=== PATIENT | female | born 1980 | race Native Hawaiian/Other Pacific Islander ===

== ENCOUNTER 2017-08-31 13:46 | Emergency (ER) | payer OTHER ==
[2017-08-31 14:08] VITALS: BMI 20.5
[2017-08-31 14:12] VITALS: RESP 18; TEMP 98.6; O2SAT 100
--- NOTE | 2017-08-31 15:13 | ED PDOC ---
Arrival/HPI - General Chief Complaint: Back Pain Time Seen by Provider: 08/31/17 14:00 - History of Present Illness Narrative History of Present Illness (Text): 37 y/o F c no PMHx p/w L flank pain x 1 day. States pain began today after shower. Denies fever, chills, dyspnea, nausea, vomiting, diarrhea, dysuria, hematuria, rash, injury. States pain was so intense, passed out, caught by , no trauma. Patient states she underwent fertility treatment in the past week which include a SQ injection in abdomen and semen injection 3 days ago. Past Medical History - Psychiatric Hx Substance Use: No Family/Social History Family/Social History: No Known Family HX Smoking Status: Former Smoker Hx Alcohol Use: No Hx Substance Use: No Allergies/Home Meds Allergies/Adverse Reactions: Allergies amoxicillin Allergy (Verified 08/31/17 14:08) RASH Review of Systems - Physician Review All systems were reviewed & negative as marked: Yes - Review of Systems Constitutional: absent: Fevers Respiratory: absent: SOB Physical Exam - Physical Exam Narrative Physical Exam (Text): Gen: NAD Head: NC Eyes: No conjunctival pallor ENT: MMM Neck: No midline tenderness Chest: No tenderness CV: Regular rate Lungs: CTA b/l Abd: Soft, NT Back: No CVA tenderness. No midline tenderness Extremities: No swelling or tenderness Skin: No rash Neuro: Alert, no focal deficit Vital Signs Temp Pulse Resp BP Pulse Ox 08/31/17 14:11 98.6 F 58 L 18 108/68 100 Medical Decision Making ED Course and Treatment: US shows bilateral hemorrhagic cysts with free fluid, no torsion and renal US shows no hydro. Will treat yeast on UA with monistat. Called [facility] in [place] and discussed case with Dr. Ochoa's nurse who states that although the patient should be treated as if , positive beta may be secondary to fertility treatment and also notes that there are no specific complications of the treatment that require further evaluation in ED at this time. - Lab Interpretations Lab Results: 08/31/17 15:00 08/31/17 15:00 Lab Results 08/31/17 15:00: Beta HCG, Quant 38.75 H 08/31/17 15:00: Sodium 140, Potassium 4.0, Chloride 107, Carbon Dioxide 25, Anion Gap 12, BUN 9, Creatinine 0.7, Est GFR ( Amer) > 60, Est GFR (Non- Af Amer) > 60, Random Glucose 86, Calcium 9.3, Total Bilirubin 0.2, AST 25, ALT 26, Alkaline Phosphatase 40, Total Protein 7.0, Albumin 4.0, Globulin 3.0, Albumin/Globulin Ratio 1.3 08/31/17 15:00: Urine Color Yellow, Urine Appearance Clear, Urine pH 8.5, Ur Specific [place] 1.015, Urine Protein Trace H, Urine Glucose (UA) Negative, Urine Ketones Negative, Urine Blood Negative, Urine Nitrate Negative, Urine Bilirubin Negative, Urine Urobilinogen 0.2, Ur Leukocyte Esterase Negative, Urine RBC 0 - 2, Urine WBC 1 - 3, Ur Epithelial Cells 4 - 5, Amorphous Sediment Few, Urine Bacteria Many, Urine Other Uyeast 08/31/17 15:00: WBC 9.4, RBC 4.47, Hgb 13.5, Hct 39.0, MCV 87.2, MCH 30.2, MCHC 34.6, RDW 13.1, Plt Count 238, MPV 9.8, Gran % 77.7 H, Lymph % (Auto) 17.6 L, [place] % (Auto) 3.3, Eos % (Auto) 1.2 L, Baso % (Auto) 0.2, Gran # 7.30 H, Lymph # (Auto) 1.7, [place] # (Auto) 0.3, Eos # (Auto) 0.1, Baso # (Auto) 0.02 - RAD Interpretation Radiology Orders: 08/31/17 15:53 RENAL [US] Stat 08/31/17 16:20 TRANSVAGINAL [US] Stat - Medication Orders Current Medication Orders: Discontinued Medications Acetaminophen (Tylenol 325mg Tab) 650 mg PO STAT STA Stop: 08/31/17 14:36 Last Admin: 08/31/17 15:26 Dose: 650 mg MAR Pain/Vitals Document 08/31/17 15:26 HI (Rec: 08/31/17 15:26 HI [id number]) Pain Reassessment Is This A Pain ReAssessment? No Disposition/Present on Arrival - Present on Arrival Any Indicators Present on Arrival: No History of DVT/PE: No History of Uncontrolled Diabetes: No Urinary Catheter: No History of Decub. Ulcer: No History Surgical Site Infection Following: None - Disposition Have Diagnosis and Disposition been Completed?: Yes Diagnosis: Ovarian cyst Disposition: HOME/ ROUTINE Disposition Time: 17:52 Patient Plan: Discharge Condition: STABLE Discharge Instructions (ExitCare): Ovarian Cysts Additional Instructions: Accession No. : [id number] Patient Name / ID : AIDA LYNCH / [id number] Exam Date : 08/31/2017 16:39:37 ( Approved ) Study Comment : Sex / Age : F / 37Y Creator : Melba Trevino MD Dictator : Melba Trevino MD Credit Support Specialist : Director Of Student Financial Aid : Melba Trevino MD Approver2 : Report Date : 08/31/2017 17:38:17 My Comment : HISTORY: r/o cyst vs torsion COMPARISON: None available. TECHNIQUE: Transvaginal pelvic ultrasound was performed. FINDINGS: UTERUS: Measures 8.2 x 3.9 x 5.5 cm. Anteverted, normal in size and appearance. No fibroid or other mass lesion seen. ENDOMETRIUM: Measures 15 mm in diameter. Normal in appearance. CERVIX: No cervical abnormality identified. RIGHT OVARY: Measures 4.0 x 3.8 x 3.3 cm. No solid mass. Normal flow. There is a 1.5 cm complicated/hemorrhagic cyst. LEFT OVARY: Measures 3.3 x 2.6 x 3 point cm. No solid mass. Normal flow. There is a 1.6 cm complicated/hemorrhagic cyst. Also noted is 4.7 x 3.0 x 4.3 cm anechoic lesion in the left adnexa. FREE FLUID: There is moderate amount of hemorrhagic fluid in the pelvis. OTHER FINDINGS: None. IMPRESSION: 1. 4.7 cm cystic mass in the left adnexa may represent a parametrial cyst, exophytic ovarian cyst or peritoneal cyst. Follow-up ultrasound in 3-6 months interval is recommended to assess stability/resolution. 2. 1.5 cm hemorrhagic cyst in the right ovary and 1.6 cm presumable hemorrhagic cyst in the left ovary. Moderate amount of hemorrhagic fluid in the pelvis which could be related to rupture of a hemorrhagic cyst. Clinical follow-up is advised. Accession No. : [id number] Patient Name / ID : AIDA LYNCH / [id number] Exam Date : 08/31/2017 16:28:12 ( Approved ) Study Comment : Sex / Age : F / 37Y Creator : Melba Trevino MD Dictator : Melba Trevino MD Credit Support Specialist : Director Of Student Financial Aid : Melba Trevino MD Approver2 : Report Date : 08/31/2017 17:33:50 My Comment : PROCEDURE: Ultrasound of the Kidneys HISTORY: Left flank pain COMPARISON: None available. TECHNIQUE: Grayscale imaging was performed. FINDINGS: RIGHT KIDNEY: Measures: 11.8 cm. Normal in size, contour and echogenicity. No stone, solid mass lesion or hydronephrosis visualized. LEFT KIDNEY: Measures: 11.8 cm. Normal in size, contour and echogenicity. No stone, solid mass lesion or hydronephrosis visualized. OTHER FINDINGS: None. IMPRESSION: No hydronephrosis or nephrolithiasis. Forms: [employer] (Uzbek)
[2017-08-31 15:23] LABS: BASO # 0.02 K/mm3 (0.0-2.0); BASO % 0.2 % (0.0-3.0); EOS # 0.1 (0.0-0.7); EOS % 1.2 % (1.5-5.0); GRAN # 7.3 (1.4-6.5); GRAN % 77.7 % (50.0-68.0); HEMOGLOBIN 13.5 g/dL (12.0-16.0); LYMPH # 1.7 (1.2-3.4); LYMPH % 17.6 % (22.0-35.0); MEAN CELL VOLUME 87.2 fl (80.0-105.0); MEAN CORPUSCULAR HEMOGLOBIN 30.2 pg (25.0-35.0); MEAN CORPUSCULAR HGB CONC 34.6 g/dl (31.0-37.0); MEAN PLATELET VOLUME 9.8 fl (7.0-11.0); MONO # 0.3 (0.1-0.6); MONO % 3.3 % (1.0-6.0); RBC 4.47 10^6/uL (3.5-6.1); RED CELL DISTRIBUTION WIDTH 13.1 % (11.5-14.5); WHITE BLOOD COUNT 9.4 10^3/ul (4.5-11.0)
[2017-08-31 15:25] LABS: PH,URINE 8.5 (4.7-8.0); URINE APPEARANCE CLEAR (CLEAR); URINE BILIRUBIN NEGATIVE (NEGATIVE); URINE BLOOD NEGATIVE (NEGATIVE); URINE COLOR YELLOW (YELLOW); URINE GLUCOSE (UA) NEGATIVE (NEGATIVE); URINE LEUKOCYTE ESTERASE NEGATIVE Leu/uL (NEGATIVE); URINE PROTEIN TRACE mg/dL (<30 mg/dL); URINE UROBILINOGEN 0.2 E.U./dL (<1 E.U./dL)
[2017-08-31 15:29] LABS: ALB/GLOB RATIO 1.3 (1.1-1.8); ALT/SGPT 26 U/L (7-56); AST/SGOT 25 U/L (14-36); BLOOD UREA NITROGEN 9 mg/dL (7-21); CALCIUM 9.3 mg/dL (8.4-10.5); GFR AFRICAN-AMERICAN > 60; GFR NON-AFRICAN AMERICAN > 60
[2017-08-31 15:32] LABS: URINE RBC 0 - 2 /hpf (0-2)
[2017-08-31 15:33] LABS: URINE AMORPHOUS SEDIMENT FEW; URINE BACTERIA MANY (NEG)
--- NOTE | 2017-08-31 17:35 | US ---
PROCEDURE: Ultrasound of the Kidneys HISTORY: Left flank pain COMPARISON: None available. TECHNIQUE: Grayscale imaging was performed. FINDINGS: RIGHT KIDNEY: Measures: 11.8 cm. Normal in size, contour and echogenicity. No stone, solid mass lesion or hydronephrosis visualized. LEFT KIDNEY: Measures: 11.8 cm. Normal in size, contour and echogenicity. No stone, solid mass lesion or hydronephrosis visualized. OTHER FINDINGS: None. IMPRESSION: No hydronephrosis or nephrolithiasis.
--- NOTE | 2017-08-31 17:39 | US ---
HISTORY: r/o cyst vs torsion COMPARISON: None available. TECHNIQUE: Transvaginal pelvic ultrasound was performed. FINDINGS: UTERUS: Measures 8.2 x 3.9 x 5.5 cm. Anteverted, normal in size and appearance. No fibroid or other mass lesion seen. ENDOMETRIUM: Measures 15 mm in diameter. Normal in appearance. CERVIX: No cervical abnormality identified. RIGHT OVARY: Measures 4.0 x 3.8 x 3.3 cm. No solid mass. Normal flow. There is a 1.5 cm complicated/hemorrhagic cyst. LEFT OVARY: Measures 3.3 x 2.6 x 3 point cm. No solid mass. Normal flow. There is a 1.6 cm complicated/hemorrhagic cyst. Also noted is 4.7 x 3.0 x 4.3 cm anechoic lesion in the left adnexa. FREE FLUID: There is moderate amount of hemorrhagic fluid in the pelvis. OTHER FINDINGS: None. IMPRESSION: 1. 4.7 cm cystic mass in the left adnexa may represent a parametrial cyst, exophytic ovarian cyst or peritoneal cyst. Follow-up ultrasound in 3-6 months interval is recommended to assess stability/resolution. 2. 1.5 cm hemorrhagic cyst in the right ovary and 1.6 cm presumable hemorrhagic cyst in the left ovary. Moderate amount of hemorrhagic fluid in the pelvis which could be related to rupture of a hemorrhagic cyst. Clinical follow-up is advised.
[2017-08-31 18:34] VITALS: BP 112/70; PULSE 60
== END 2017-08-31 18:20 | disposition home or self-care (01) ==
LOC: ED 13:46
DX: N83.209 Unspecified ovarian cyst, unspecified side (principal); Z87.891 Personal history of nicotine dependence

== ENCOUNTER 2017-08-31 18:33 | Observation (INO) | payer OTHER ==
[2017-08-31] MEDS ORDERED: Morphine 2 mg/ml ISec IVP STA (18:46)
--- NOTE | 2017-08-31 19:02 | ED PDOC ---
Arrival/HPI - General Time Seen by Provider: 08/31/17 18:35 - History of Present Illness Narrative History of Present Illness (Text): Patient discharged and had near syncopal episode on way to vehicle and came back to ED. See chart from earlier today for full HPI. Past Medical History - Psychiatric Hx Substance Use: No Family/Social History Family/Social History: No Known Family HX Smoking Status: Former Smoker Hx Alcohol Use: No Hx Substance Use: No Allergies/Home Meds Allergies/Adverse Reactions: Allergies amoxicillin Allergy (Verified 08/31/17 14:08) RASH Review of Systems - Physician Review All systems were reviewed & negative as marked: Yes - Review of Systems Constitutional: absent: Fevers Respiratory: absent: SOB Physical Exam - Physical Exam Narrative Physical Exam (Text): Exam unchanged. See previous chart for full Physical examination. Vital Signs Temp Pulse Resp BP Pulse Ox 08/31/17 19:52 57 L 16 98/61 L 100 08/31/17 18:57 98.9 F 50 L 20 91/41 L 99 Medical Decision Making ED Course and Treatment: Explained risks of various analgesics, patient agreeable to morphine administration. Paged Dr. Philippe for pain control observation given patient with syncopal episodes. - Medication Orders Current Medication Orders: Discontinued Medications Famotidine (Pepcid) 40 mg PO HS SILKE Last Admin: 08/31/17 22:16 Dose: 40 mg Hydromorphone HCl (Dilaudid) 0.5 mg IVP Q4H PRN PRN Reason: Pain, Mild (1-3) Last Admin: 08/31/17 23:47 Dose: 0.5 mg ZEN Pain Assessment Document 08/31/17 23:47 MV (Rec: 08/31/17 23:51 MV [id number]) Pain Reassessment Is this a pain reassessment? No Presence of Pain Presence of Pain Yes Pain Scale Used Pain Scale Used Numeric Location Upper or Lower Lower Pain Location Body Site Back Description Description Throbbing Intensity of Pain at present 8 Pain Behavior Irritability Facial Grimacing Alleviating Factors/Management Medication Techniques Alleviating Factors Medication IVP Administration Document 08/31/17 23:47 MV (Rec: 08/31/17 23:51 MV [id number]) Charges for Administration # of IVP Administrations 1 Re-Assess: ZEN Pain Assessment Document 09/01/17 00:47 MV (Rec: 03/21/18 01:07 MV [id number]) Pain Reassessment Is this a pain reassessment? Yes Sleep Is patient sleeping during reassessment? Yes Sodium Chloride (Sodium Chloride 0.9%) 1,000 mls @ 100 mls/hr IV .Q10H SILKE Last Admin: 09/02/17 17:32 Dose: 100 mls/hr eMAR Start Stop Document 09/02/17 17:32 BIR (Rec: 09/02/17 17:32 BIR [id number]) Intravenous Solution Start Date 09/02/17 Start Time 17:32 End Date 09/02/17 End time 23:00 Total Infusion Time 328 Morphine Sulfate (Morphine) 2 mg IVP STAT STA Stop: 08/31/17 18:47 Last Admin: 08/31/17 19:00 Dose: 2 mg [id number] Pain Assessment Document 08/31/17 19:00 HI (Rec: 08/31/17 19:15 HI [id number]) Pain Reassessment Is this a pain reassessment? No Sleep Is patient sleeping during reassessment? No Presence of Pain Presence of Pain Yes Pain Scale Used Pain Scale Used Numeric Location Upper or Lower Lower Pain Location Body Site Back Description Pain Behavior Perspiration Facial Grimacing IVP Administration Document 08/31/17 19:00 HI (Rec: 08/31/17 19:15 HI [id number]) Charges for Administration # of IVP Administrations 1 Re-Assess: MAR Pain Assessment Document 08/31/17 20:00 HI (Rec: 08/31/17 20:22 HI [id number]) Pain Reassessment Is this a pain reassessment? Yes Sleep Is patient sleeping during reassessment? No Presence of Pain Presence of Pain Yes Pain Scale Used Pain Scale Used Numeric Location Upper or Lower Lower Pain Location Body Site Back Description Description Sharp Intensity of Pain at present 5 Pain Behavior Facial Grimacing Potassium Chloride (K-Dur 20 Meq Er Tab) 20 meq PO ONCE ONE Stop: 09/01/17 14:52 Last Admin: 09/01/17 15:26 Dose: 20 meq Potassium Chloride (K-Dur 20 Meq Er Tab) 40 meq PO ONCE ONE Stop: 09/02/17 15:14 Last Admin: 09/02/17 17:39 Dose: 40 meq Disposition/Present on Arrival - Present on Arrival Any Indicators Present on Arrival: No History of DVT/PE: No History of Uncontrolled Diabetes: No Urinary Catheter: No History Surgical Site Infection Following: None - Disposition Have Diagnosis and Disposition been Completed?: Yes Diagnosis: Syncope Disposition: HOSPITALIZED Disposition Time: 19:00 Patient Plan: Observation, Telemetry Condition: FAIR
[2017-08-31 19:05] VITALS: BMI 20.2
[2017-08-31] MEDS ORDERED: HYDROmorphone 0.5 mg/0.5 ml ISec IVP PRN (20:39)
[2017-08-31] MEDS: Sodium Chloride 0.9% 1,000 ML IV SCH (22:16)
[2017-09-01 06:39] LABS: HEMOGLOBIN 12.5 g/dL (12.0-16.0); MEAN CELL VOLUME 87.4 fl (80.0-105.0); MEAN CORPUSCULAR HEMOGLOBIN 29.7 pg (25.0-35.0); MEAN PLATELET VOLUME 10.1 fl (7.0-11.0); RBC 4.21 10^6/uL (3.5-6.1); RED CELL DISTRIBUTION WIDTH 13.2 % (11.5-14.5); WHITE BLOOD COUNT 8.8 10^3/ul (4.5-11.0)
[2017-09-01 06:51] LABS: BLOOD UREA NITROGEN 8 mg/dL (7-21); GFR AFRICAN-AMERICAN > 60; GFR NON-AFRICAN AMERICAN > 60; HDL CHOLESTEROL 38 mg/dL (29-60)
[2017-09-01 07:00] LABS: LDL CHOLESTEROL 70 mg/dL (0-129)
--- NOTE | 2017-09-01 11:26 | CARD ---
APPROVED REPORT EKG Measurement Heart [id number] <Conclusion> Marked sinus bradycardia Rightward axis Incomplete right bundle branch block Non Specific ST_T Changes.
--- NOTE | 2017-09-01 13:58 | CP.PCM.PCO ---
Physician Communication Note - Physician Communication Note Physician Communication Note: hold of ct head.
[2017-09-01] MEDS ORDERED: Potassium Chloride 20 mEq ER Tab PO ONE (14:51)
--- NOTE | 2017-09-01 17:10 | US ---
PROCEDURE: Bilateral carotid artery duplex ultrasound HISTORY: Carotid stenosis possible TIA PHYSICIAN(S): Get Ignacio MD. TECHNIQUE: Duplex sonography and color-flow Doppler were used to evaluate the carotid bifurcations and limited segments of the vertebral arteries bilaterally. FINDINGS: There is minimal intimal- medial thickening noted at the carotid bifurcations bilaterally. The peak systolic velocity in the proximal right internal carotid artery is 78 cm/sec. This corresponds to a 0-19 percent proximal right ICA stenosis. Normal systolic velocities are noted in the proximal right external carotid artery. There is antegrade flow in the right vertebral artery. The peak systolic velocity in the proximal left internal carotid artery is 102 cm/sec. This corresponds to a 0-19 percent proximal left ICA stenosis. Normal systolic velocities are noted in the proximal left external carotid artery. There is antegrade flow in the left vertebral artery. IMPRESSION: 1. Bilateral 0-19 percent proximal ICA stenoses. 2. Antegrade flow in both vertebral arteries.
--- NOTE | 2017-09-02 01:59 | CON ---
DATE: 09/01/2017 LOCATION: Room 365, bed 2. REASON FOR CONSULTATION: Syncope, bradycardia. HISTORY OF PRESENT ILLNESS: A 37-year-old female who states that 4 days ago, she had a fertility treatment which included a subcu injection in the abdomen and a semen injection, and yesterday, patient had severe left flank pain and the pain was so severe that she had a syncopal episode. She did not fall down. She was able to hold on to her . She was evaluated in the Emergency Room, and while she was sitting in wheelchair, she again felt like passing out. Patient denies any chest pain, palpitation, or shortness of breath associated with that. She denies any episode or dizziness or syncope in the past. Patient states that she always has bradycardia, at least 5 years. At that time she was in [facility], and she went to medical doctors there. She was told that she had slow heart beat, but she was asymptomatic and she was never treated for it. PAST MEDICAL HISTORY: Patient had hemorrhoidectomy surgery. PERSONAL HISTORY: Denies smoking, denies drinking. ALLERGIES: PATIENT DENIES ANY ALLERGIES. SOCIAL HISTORY: Denies any substance abuse. FAMILY HISTORY: Positive for diabetes. MEDICATIONS AT HOME: Patient is not taking any medications at home. REVIEW OF SYSTEMS: All other systems reviewed, positive mentioned in the HPI, others are negative. PHYSICAL EXAMINATION: VITAL SIGNS: Blood pressure 98/56, respirations 18, pulse 52, temperature 98. HEENT: Head is normocephalic. Eyes, pupils are normal. Conjunctivae are normal. Nose and throat are normal. NECK: JVP low. Carotids are equal. THORAX: AP diameter normal. LUNGS: Clear. CARDIOVASCULAR: S1 and S2. ABDOMEN: Soft. No tenderness. No organomegaly. Bowel sounds are normal. EXTREMITIES: No clubbing. No cyanosis. LABORATORY DATA: WBC 8.8, hemoglobin 12.5, hematocrit 36.8, platelets 229. Sodium 141, potassium 3.5, BUN 8, creatinine 0.6, glucose 87, calcium 9.0. AST, ALT, total protein, albumin are normal. TSH is 3.08 which is normal. Triglycerides 79, cholesterol 132, LDL 70, HDL 38. Beta hCG quantitative 38.75, repeat one 25.09. While I was examining, patient's pulse rate was 64. DIAGNOSIS: Syncope, possibly vasovagal, incidental finding is sinus bradycardia, status post artificial insemination 4 days ago, rule out . Patient has a history of bradycardia, at least 5 years, she knows, symptomatic in the past; hypokalemia. PLAN: We will continue to monitor the patient and we will give potassium therapy and repeat potassium level in the morning. We will do an echocardiogram. Urine test is pending. Carotid vertebral ultrasound has been requested by Dr. Salvador. EKG showed sinus bradycardia. We will follow up. Filippo Cantu MD
--- NOTE | 2017-09-02 02:04 | HP ---
CHIEF COMPLAINT: Back pain. HISTORY OF PRESENT ILLNESS: A 37-year-old female with nonsignificant past medical history, came with left flank pain for one week. States the pain begins after shower. Denies fever, chills, dyspnea, nausea, vomiting, diarrhea. No dysuria, no hematuria. No rash. No shortness of breath. No injury. States the pain was so intense. She had feeling of passing out, caught by the . No trauma. Patient states that she underwent fertility treatment in the past week, which includes status post subcutaneous injection in the abdomen and semen injection three days ago. Patient was seen by Dr. Otf Otrez, he gave prescription of Percocet and discharged the patient, and then patient just went out. According to her, she had near syncope episode on the way to vehicle and came back to ED and was admitted by Dr. 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 PAST MEDICAL HISTORY: No significant past medical history. FAMILY HISTORY: Father and mother, noncontributory. ALLERGIES: PATIENT IS ALLERGIC WITH AMOXICILLIN. HABITS: Former smoker, now not smoking. No drug, no ethanol. REVIEW OF SYSTEMS: Patient was seen and examined on the bedside in her room. She was sleepy. No fever. No chills. No abdominal pain . No headache. No dizziness. No coughing. No shortness of breath. No CVA tenderness. No neckline tenderness. No swelling of the legs. No rash. Sleepy, arousable. PHYSICAL EXAMINATION: VITAL SIGNS: Temperature 98, pulse 52, blood pressure 98/56, respiratory rate 18. HEENT: Head normocephalic, atraumatic. Eyes, PERRLA. Extraocular muscles are intact. Conjunctivae are clear. Nose, patent. Mucous membranes are moist. NECK: Supple. No carotid bruit. No JVD or thyromegaly. CHEST: Bilaterally symmetrical. HEART: S1 and S2 positive. LUNGS: Clear to auscultation. ABDOMEN: Soft, bowel sounds are present. No organomegaly. EXTREMITIES: No edema, no cyanosis. NEUROLOGIC: Patient is sleepy but arousable. Moving all four extremities. Following simple order. LABORATORY DATA: White blood cells 6.8, hemoglobin 12.5, hematocrit 36.8, platelets 229. Sodium 141, potassium 4.0, repeat 3.5, chloride 111, BUN 8, creatinine 0.6. Hemoglobin A1c 5.2. Beta-HCG is 38.75, repeat is 25.9, trending down. ASSESSMENT AND PLAN: Justa Michaels, a 37-year-old lady with hypokalemia, hyperchloremia, beta-HCG positive, trending down, urine had traces of protein, came with pain, back pain and came second time for feeling of syncope. No hydronephrosis or nephrolithiasis as renal ultrasound showed. Transvaginal ultrasound reviewed by me, 4.7-cm cystic mass in the left adnexa, may represent parametrial cyst, exophytic ovarian cyst, or peritoneal cyst. According to them, followup ultrasound in three to six months is recommended. 1.5 cm hemorrhagic cyst in the right ovary and 1.6 cm presumable hemorrhagic cyst in the left ovary, moderate amount of hemorrhagic fluid in the pelvis, which could reveal a rupture of the hemorrhagic cyst. Dr. Ortez gave the diagnosis of ovarian cyst, and he discharged the patient as patient was stable, ovarian cyst, but patient came back and admitted. Neurology consult called with Dr. Salvador, spoke to Dr. Salvador. Justina Philippe MD
[2017-09-02] MEDS: Sodium Chloride 0.9% 1,000 ML IV SCH ×2 (06:04→17:32)
[2017-09-02 07:11] LABS: BLOOD UREA NITROGEN 9 mg/dL (7-21); CALCIUM 9.2 mg/dL (8.4-10.5); GFR AFRICAN-AMERICAN > 60; GFR NON-AFRICAN AMERICAN > 60
--- NOTE | 2017-09-02 08:11 | CON ---
DATE: 09/01/2017 NEUROLOGY CONSULT CHIEF COMPLAINT: Syncope. HISTORY OF PRESENT ILLNESS: This is a 37-year-old woman with no significant past medical history presented with left flank pain for the past day. The pain began after the shower. She denies any nausea, vomiting, diarrhea, dysuria, or hematuria. She states the pain was so intense and she passed out and was called by her . No trauma to the head. She underwent fertility treatment in the past week with subcu injection in the abdomen, same as the injection 3 days ago. She had a renal ultrasound, which was unremarkable. She had a transvaginal ultrasound, which showed a 4.7 cm cystic mass in the left adnexa, may represent a parametrial cyst and she has 1.5 cm hemorrhagic cyst in the right ovary and 1.6 cm presumably hemorrhagic cyst in the left ovary and moderate amount of hemorrhage and fluids in the pelvis, which could be related to ruptured or hemorrhagic cyst. We will need QUALITY IMPROVEMENT COORDINATOR (RN) to follow up. Otherwise, no focal weakness on the examination. She had low systolic and diastolic blood pressure and also bradycardic, even though she is . Overall doing much better. CAT scan was not done. It was unclear whether she can have a CAT scan given her intravenous examination. Due to there is no focal neurological deficits, I do not see that there is an issue of having CAT scan of the head. PAST MEDICAL HISTORY: History of artificial insemination, status post fertility treatment. REVIEW OF SYSTEMS: Fourteen-point review of systems negative except as per the HPI. ALLERGIES: AMOXICILLIN. FAMILY HISTORY: Noncontributory. SOCIAL HISTORY: No illicit drug use, smoking or EtOH abuse. LABORATORY DATA: Sodium is 141, potassium 3.5, chloride of 111, carbon dioxide of 21, BUN of 8, creatinine 0.6, random glucose 87. Beta-hCG is 25, which is high. PHYSICAL EXAMINATION: VITAL SIGNS: Temperature of 98, pulse rate of 52, blood pressure 98/56, respiratory rate of 18, O2 saturation 98% on room air. GENERAL: The patient is seen up in bed, in no acute distress. HEENT: Atraumatic, normocephalic. PERRLA. Extraocular muscles intact. NECK: Supple. No JVD. No adenopathy noted. LUNGS: Clear to auscultation. No adventitious sounds. HEART: S1, S2. Normal rate and rhythm. No murmurs, rubs or gallops. ABDOMEN: Soft, nontender and nondistended. Bowel sounds are present. EXTREMITIES: No clubbing. No cyanosis. Peripheral pulses 2+ felt bilaterally. NEUROLOGIC: The patient is alert, and oriented to person, place, month and year. Speech is fluent without any errors. Cranial nerves II through XII intact. Motor exam: Moves all extremities equally. Toes are downgoing bilaterally. Sensory exam: Light touch, pinprick, proprioception and vibration are intact. DTRs are 2+ throughout. Coordination: Dqdykj-eo-dpcy intact. Gait is deferred for now. ASSESSMENT AND PLAN: This is a 37-year-old woman with no significant past medical history, just recently underwent fertility treatment in the past with subcu injection in the abdomen, the same injection 3 days ago, came in with left flank pain for the past day, which began after the shower. The pain was intense and had passed out due to the pain. She had low systolic and diastolic blood pressure and mildly dehydrated. Her syncopal event was secondary to vasovagal event from the pain in the left flank as well as transient cerebral hypoperfusion to the brain. At this time, recommend conservative management. Given her transvaginal ultrasound that shows a 1.5 cm hemorrhagic cyst in the right ovary and 1.6 presumably hemorrhagic cyst in the left ovary with moderate amount of hemorrhage in the pelvis, which could be related to rupture of the hemorrhagic cyst. We would recommend to follow up with an QUALITY IMPROVEMENT COORDINATOR (RN) much sooner. At this time, we will recommend: 1. Adequate hydration. 2. We will recommend CAT scan of the head just to make sure there are no acute intracranial abnormalities and recommend Cardiology consult given that she is bradycardic. At this time, continue current present medical management. No further neurological workup further needed at this time. Ti Salvador MD
[2017-09-02] MEDS ORDERED: Potassium Chloride 20 mEq ER Tab PO ONE (15:13)
--- NOTE | 2017-09-02 17:09 | CARD ---
APPROVED REPORT EXAM: Two-dimensional and M-mode echocardiogram with Doppler and color Doppler. INDICATION BRADYCARDIA/SYNCOPE 2D DIMENSIONS Left Atrium (2D)3.0 (1.6-4.0cm)IVSd0.8 (0.7-1.1cm) LVDd4.2 (3.9-5.9cm)PWd0.8 (0.7-1.1cm) LVDs2.5 (2.5-4.0cm)FS (%) 39.0 % LVEF (%)69.9 (>50%) M-Mode DIMENSIONS Aortic Root2.30 (2.2-3.7cm)Aortic Cusp Exc.1.90 (1.5-2.0cm) Aortic Valve AoV Peak Jvcdcvpb395.0cm/Rick Peak GR.5mmHg Mitral Valve MV E Epoadebr18.4cm/sMV A Zqzopdby68.3cm/sE/A ratio1.6 TDI E/Lateral E'0.0E/Medial E'0.0 Tricuspid Valve TR Peak Xjrpkqyx150ao/sRAP [id number] Peak Gr.19mmHg [id number] LEFT VENTRICLE The left ventricle is normal size. There is normal left ventricular wall thickness. The left ventricular function is normal. The left ventricular ejection fraction is within the normal range. 70% There is normal LV segmental wall motion. RIGHT VENTRICLE The right ventricle is normal size. The right ventricular systolic function is normal. ATRIA The left atrium size is normal. The right atrium size is normal. AORTIC VALVE The aortic valve is normal in structure. MITRAL VALVE The mitral valve is normal in structure. Mitral regurgitation is trace to mild. TRICUSPID VALVE The tricuspid valve is normal in structure. PERICARDIAL EFFUSION There is no pericardial effusion. <Conclusion> There is normal LV segmental wall motion. The left ventricular function is normal. The left ventricular ejection fraction is within the normal range. 70% The right ventricular systolic function is normal. The right ventricle is normal size. The left atrium size is normal. The right atrium size is normal. The aortic valve is normal in structure. The mitral valve is normal in structure. Mitral regurgitation is trace to mild. The left ventricle is normal size.
--- NOTE | 2017-09-02 20:49 | PN ---
DATE: 09/02/2017 REASON FOR CONSULTATION: Followup syncope, bradycardia. SUBJECTIVE: The patient denies any chest pain, shortness of breath or any palpitation. OBJECTIVE: GENERAL: Not in apparent distress. VITAL SIGNS: Temperature afebrile, heart rate 50, blood pressure 90/57. HEENT: PERRLA. Extraocular muscles intact. NECK: Supple. No carotid bruit or thyromegaly. CHEST: Clear to auscultation. HEART: S1, S2 regular. ABDOMEN: Soft. EXTREMITIES: Clubbing and cyanosis negative. LABORATORY DATA: Blood workup as follows: WBC 8.8, hemoglobin , hematocrit 36.8, platelet count 229. Chemistry shows sodium 140, potassium 3.7, chloride of 109, carbon dioxide of 74, anion gap of 11, BUN 9, creatinine 0.7, TSH 3.08, beta-hCG is 25.09. IMPRESSION: Beta-hCG positive at 25, history of near syncope, possibly vasovagal, incidental finding of sinus bradycardia status post artificial insemination 4 days ago for , history of bradycardia at least 5 years ago. history of hypokalemia. RECOMMENDATION: Monitor electrolytes. We will get echo to assess LV function and rule out any structural heart disease. Potassium 3.7, gave extra K. We will follow with you. So far, CVS status is stable, asymptomatic, the patient has known bradycardia. Yesterday, the patient got 20 of KCl. Today, potassium is still 3.7, gave her 40. Thank you, Dr. Philippe, for providing us the opportunity in taking care of the patient, Justa Michaels. Filippo Valencia MD
[2017-09-03 01:23] VITALS: RESP 20
--- NOTE | 2017-09-03 03:53 | PN ---
DATE: SUBJECTIVE: Patient is a 37-year-old female. Patient was seen and examined at the bedside, looking comfortable. No nausea, vomiting, diarrhea. No shortness of breath. No hematuria or hematochezia. No fever. No chills. PHYSICAL EXAMINATION: VITAL SIGNS: Temperature 98.6, pulse 65, blood pressure 100/56, respiratory rate 19. HEENT: Head normocephalic, atraumatic. Eyes, PERRLA. Extraocular muscles are intact. Conjunctivae clear. Nose, patent. Mucous membranes moist. NECK: Supple. No carotid bruit. No JVD or thyromegaly. CHEST: Bilaterally symmetrical. HEART: S1 and S2 positive. LUNGS: Clear to auscultation. ABDOMEN: Soft, bowel sounds are present. No organomegaly. EXTREMITIES: No edema, no cyanosis. NEUROLOGIC: Patient is awake, alert. Moving all four extremities. No focal deficit. MEDICATIONS: Patient is getting NS. LABORATORY DATA: White blood cells 8.8, hemoglobin 12.5, hematocrit 36.8, platelets 229. Sodium 140, potassium 3.7, chloride 109. Beta HCG 25.9. ASSESSMENT AND PLAN: Ms. Justa Michaels is a 37-year-old lady, who came with near syncope, possibly vasovagal. Patient has sinus bradycardia, had artificial insemination 4 days ago. According to emergency response coordinator, bradycardia is for at least 5 years. Electrolyte imbalance was corrected. Spoke to Dr. Westfall, LICENSED APPRAISER. LICENSED APPRAISER consult was written on 08/31/2017 a couple of times, but up to now, patient is not seen _was also noted by me. Dr. Salvador saw the patient. If LICENSED APPRAISER clear, we will discharge the patient to home tomorrow with followup with her own LICENSED APPRAISER team. Gastrointestinal and deep vein thrombosis prophylaxis. Repeat labs. We will follow up. Justina Philippe MD [facility]
[2017-09-03 07:55] VITALS: BP 90/56; TEMP 98.4; O2SAT 97
[2017-09-03 11:23] VITALS: PULSE 52
--- NOTE | 2017-09-03 16:17 | PN ---
DATE: 09/03/2017 LOCATION: Patient in room 365, bed 2. REASON FOR CONSULTATION: Syncope, bradycardia. SUBJECTIVE: Patient is lying flat in bed without chest pain, shortness of breath, or palpitations. Denies any dizziness or any further episodes of presyncope or syncope. PHYSICAL EXAMINATION VITAL SIGNS: Blood pressure 90/56, respirations 20, pulse 50, temperature 98.4. HEENT: Head is normocephalic. Eyes, pupils are normal. Conjunctivae are normal. Nose and throat are normal. NECK: JVP low. Carotids are equal. THORAX: AP diameter normal. LUNGS: Clear. CARDIOVASCULAR: S1 and S2. ABDOMEN: Soft. Bowel sounds are normal. EXTREMITIES: No clubbing. No cyanosis. LABORATORY DATA: Shows sodium 140, potassium 3.7, BUN 9, creatinine 0.7. Calcium, phosphorus and magnesium is normal. Potassium on admission 3.5, yesterday potassium was 3.7. Echo done yesterday showed normal LV systolic function, ejection fraction 70%, mitral regurgitation is trace to mild. DIAGNOSES: Syncope, probably vasovagal. Patient was having history of pain at that time. Bradycardia, patient states for many years when she was in [place], she was told she has bradycardia and she has been asymptomatic for many years. PLAN: Clinically, the patient's cardiac status seems to be stable at this time and the patient has history of bradycardia for many years. There is a question about with the patient following the artificial insemination three days before admission to the hospital, so we will continue therapy and patient can follow as outpatient. We will follow. Filippo Cantu MD
--- NOTE | 2017-09-03 18:22 | CON ---
DATE: 09/03/2017 PUBLIC RELATIONS DIRECTOR [place] CONSULT HISTORY OF PRESENT ILLNESS: This is a 37-year-old G0, last menstrual period on 08/17/2017, who came to the ER on 08/31/2017 complaining of left lower back/ left-sided hip pain. Reports that she fell down on Wednesday a.m. when she felt a lot of pain in the shower and reports that she fell due to the pain. Pt denies knowing any causes of the pain. The patient reports that she is on fertility treatment receiving Clomid and had intrauterine insemination done on Wednesday on 08/28/2017. The patient also received an injection for her fertility treatment. The patient was discharged home from the ED on 08/31/2017 ; however, she had an episode where she nearly passed out going to her car. The patient reported to me that she felt scared and passed out because she did not feel ready to leave because she was in too much pain with her left hip. She returned to the ER and she was admitted for pain control. She has been receiving IV narcotics for her pain. She does report some light spotting since she underwent the intrauterine insemination. The patient sees a fertility specialist in [place], [facility], Dr. Ochoa for fertility treatment. It should be noted that her pulse runs low in the 50s and she was evaluated by Cardiology. According to the note, the patient was diagnosed with asymptomatic bradycardia in [place] and has had that for about 5 years now with no symptoms. PAST MEDICAL HISTORY: Healthy. PAST SURGICAL HISTORY: Hemorrhoid surgery in 2013. MEDICATIONS: The patient reports that she had intrauterine insemination on 08/28/2017 and she also received an HCG injection with her fertility treatment. ALLERGIES: AMOXICILLIN CAUSES A RASH. FAMILY HISTORY: Noncontributory. SOCIAL HISTORY: The patient reports that she quit smoking about 2 months ago. Denies alcohol use and denies illicit drug use. PUBLIC RELATIONS DIRECTOR HISTORY: Menarche at 11 with a history of monthly periods. The patient reports she has a remote history of Chlamydia and denies any abnormal Pap smears. PHYSICAL EXAMINATION: VITAL SIGNS: Afebrile. Vital signs stable. Her pulse runs low in the 50's. GENERAL: The patient appears comfortable, lying in bed. HEART: Regular rate and rhythm. CHEST: Lungs clear to auscultation bilaterally. ABDOMEN: Soft, nontender. No CVA tenderness. No suprapubic tenderness. SPECULUM: cervix appeared to have an ectropion with very slight contact bleeding. VAGINAL: No cervical motion tenderness. Normal-sized uterus. No adnexal masses palpated. EXTREMITIES: Nontender. LABORATORY DATA: On 09/01/2017, white blood cell count was normal at 8.8, hemoglobin is 12.5. During the hospital stay, her potassium went down to 3.5 and she was given potassium for this. Otherwise, the comprehensive metabolic panel is normal, although her chloride is a little low at 109 on 09/02/2017. Sreum beta hCG was 38.75 on 08/31/2017 and it has gone down to 11.06 on 09/02/2017. Of note, she also was noted to have yeast on her urinalysis for which I think the ER doc had given her a prescription or recommended Monistat. There was trace protein on her urinalysis and her urine qualitative hCG was negative on 09/01/2017. IMAGING: Renal ultrasound done on 08/03/2017 revealed no hydronephrosis, no nephrolithiasis. A transvaginal ultrasound was done on 08/31/2017 that revealed a 4.7 cm cystic mass in the left adnexa, which may represent a parameatal cyst, exophytic ovarian cyst or peritoneal cyst and followup ultrasound in 3 to 6 months was recommended to assess stability/resolution. There was also noted to be a 1.5 cm hemorrhagic cyst in the right ovary and a 1.6 cm presumable hemorrhagic cyst in the left ovary. There was also moderate amount of hemorrhagic fluid in the pelvis, which could be related to rupture of a hemorrhagic cyst. ASSESSMENT AND PLAN: This is a 37-year-old 0, who is undergoing fertility treatment and underwent intrauterine insemination on 08/28/2017, who was admitted to the hospital for pain control due to left lower back/ hip pain. The patient reports that she feels better today. I spoke with Gabriela with [facility] and I reviewed the ultrasounds findings with him. He explained that her serum hCG is positive most likely due to the HCG injection she received to help her ovulate. We both agreed that the patient was okay to be discharged home as long as her pain was well controlled. Her abdomen and pelvic exam were benign, so the patient is cleared by Gynecology for discharge home and I informed the nurse that I have spoken to Dr. Ochoa and told her that the patient could be discharged home. Lucho Westfall MD [facility]
== END 2017-09-03 15:49 | disposition home or self-care (01) ==
LOC: ED 18:33 → ERH 19:06 → 3RNO 20:35 → OBSVTOIN 09-02 21:56 → INTOOBSV 09-02 21:56
PROVIDERS: ADMIT Internal Medicine; ATTEND Internal Medicine
DX: R55 Syncope and collapse (principal); E86.0 Dehydration; E87.6 Hypokalemia; E87.8 Other disorders of electrolyte and fluid balance, not elsewhere classified; N83.201 Unspecified ovarian cyst, right side; N83.202 Unspecified ovarian cyst, left side; W19.XXXA Unspecified fall, initial encounter; Y92.002 Bathroom of unspecified non-institutional (private) residence as the place of occurrence of the external cause; Z87.891 Personal history of nicotine dependence; R00.1 Bradycardia, unspecified
CPT/HCPCS: 36415; 80048; 80061; 83036; 83735; 84100; 84443; 84702; 84703; 85027; 93005; 93306; 93880; 96374; 99285; G0378; J1170; J2270; J7040